=== PATIENT | female | born 1975 | race Caucasian/White ===

== ENCOUNTER → 2020-03-25 | Outpatient (CLI) | payer OTHER ==
[~2020-03-25] MED LIST: CLAR10CA3 PO; IBUP200C29 PO
== END ==
LOC: M LABSMTC 09:23
PROVIDERS: ATTEND Anesthesiology
DX: Z01.812 Encounter for preprocedural laboratory examination (principal); Z20.822 Contact with and (suspected) exposure to COVID-19

== ENCOUNTER 2020-03-30 06:17 | Day surgery (SDC) | payer OTHER ==
[~2020-03-30] VITALS: Ht 162.6 cm; Wt 76.6 kg
[~2020-03-30 06:17] MED LIST changes: +LR 1,000 ML IV ONE; +ceFAZolin SOD 2 GM in IV 1 EA IV ONE
[2020-03-30 06:43] LABS: HEMATOCRIT 39.6 % (36.0-47.0); MEAN CORPUSCULAR HEMOGLOBIN 32.1 pg (27.0-33.0); MEAN CORPUSCULAR HGB CONC 32.8 g/dl (32.0-36.5); MEAN CORPUSCULAR VOLUME 97.8 fl (80.0-96.0); PLATELET COUNT, AUTOMATED 269 10^3/uL (150-450); RED BLOOD COUNT 4.05 10^6/uL (4.00-5.40); WHITE BLOOD COUNT 5.5 10^3/uL (4.0-10.0)
[2020-03-30] MEDS ORDERED: KETOROLAC 60MG 2ML VIAL As Ordered ONE (07:20)
[2020-03-30] MEDS ORDERED: dexameTHASONE 4 MG/ML 1ML VIAL (J1100 PER 1MG) As Ordered ONE (07:20)
[2020-03-30] MEDS ORDERED: ONDANSETRON 4MG/2ML VIAL As Ordered ONE ×2 (07:20→10:22)
[2020-03-30] MEDS ORDERED: propofoL 200 MG/20 ML VIAL As Ordered ONE (07:20)
[2020-03-30] MEDS ORDERED: LIDOCAINE 2% 100MG/5ML SDV (FOR ANES.) As Ordered ONE (07:20)
[2020-03-30] MEDS ORDERED: ACETAMINOPHEN 1000MG 100ML IV BTL (OFIRMEV) (J0131 PER 10MG) As Ordered ONE (07:20)
[2020-03-30] MEDS ORDERED: ROCURONIUM BROMIDE 50 MG/5 ML VIAL As Ordered ONE ×2 (07:20→07:59)
[2020-03-30] MEDS ORDERED: SUGAMMADEX SODIUM 500 MG/5 ML VIAL (BRIDION) As Ordered ONE (07:20)
[2020-03-30] MEDS ORDERED: fentaNYL 100 MCG/2 ML INJECTION (J3010) As Ordered ONE (07:21)
[2020-03-30] MEDS ORDERED: MIDAZOLAM INJ 2MG/2ML VIAL (J2250 PER 1MG) As Ordered ONE (07:22)
[2020-03-30] MEDS ORDERED: SCOPOLAMINE 1MG TRANSDERMAL PATCH As Ordered ONE (07:29)
[2020-03-30] MEDS ORDERED: HYDROmorphone HCL 2 MG/ML 1ML VIAL (J1170) As Ordered ONE (08:07)
[2020-03-30] MEDS ORDERED: MORPHINE 1MG/ML IN 0.9% NACL 100ML IV BAG As Ordered ONE (10:23)
[2020-03-30] MEDS ORDERED: MEPERIDINE INJ 25 MG/ML VIAL (J2175) IV PRN ×2 (10:30→12:45)
[2020-03-30] MEDS ORDERED: LR 1,000 ML IV SCH ×2 (10:30→12:45)
[2020-03-30] MEDS ORDERED: NALOXONE INJ 0.4MG/1ML VIAL (J2310 PER 1MG) IV PRN (10:30)
[2020-03-30] MEDS ORDERED: IBUPROFEN 600MG TAB PO PRN (10:30)
[2020-03-30] MEDS ORDERED: METOCLOPRAMIDE INJ 10MG/2ML VIAL (J2765 PER 1) IV PRN ×2 (10:30→12:45)
[2020-03-30] MEDS ORDERED: NALBUPHINE HCL 10 MG/ML AMP (J2300) IV PRN (10:30)
[2020-03-30] MEDS ORDERED: MORPHINE 1MG/ML IN 0.9% NACL 100ML IV BAG IV PRN (10:30)
[2020-03-30] MEDS ORDERED: ONDANSETRON 4MG/2ML VIAL IV PRN ×2 (10:30→12:45)
[2020-03-30] MEDS ORDERED: diphenhydrAMINE 50MG/ML VIAL (J1200) IV PRN (10:30)
[2020-03-30] MEDS ORDERED: EPIDURAL/PCA KEYS XX PRN (10:30)
[2020-03-30] MEDS ORDERED: oxyCODONE 5MG TAB PO PRN ×2 (10:30→12:45)
[2020-03-30] MEDS: fentaNYL 100 MCG/2 ML INJECTION (J3010) IV PRN ×4 (10:48→11:13)
[2020-03-30] MEDS ORDERED: fentaNYL 100 MCG/2 ML INJECTION (J3010) IV PRN (12:45)
--- NOTE | 2020-03-30 13:37 | RO ---
OPERATIVE NOTE DATE OF OPERATION: 03/30/2020 PREOPERATIVE DIAGNOSIS/INDICATION FOR SURGERY: Pain, bleeding, and failed conservative efforts. POSTOPERATIVE DIAGNOSIS: Pain, bleeding, and failed conservative efforts. PROCEDURE: Laparoscopic-assisted vaginal hysterectomy with bilateral salpingo-oophorectomy. SURGEON: Dr. Jean-Baptiste INSTRUCTIONAL COORDINATOR: None. ANESTHESIA: General endotracheal anesthesia. BRIEF DESCRIPTION OF PROCEDURE AND FINDINGS: Ann was brought to the operating room, where sufficient general endotracheal anesthesia was induced. She was prepped, draped, and positioned in the usual sterile fashion, and the uterine manipulator was placed. There was resistance in the endometrium, consistent with her history of ablation. Upon sounding, it was apparent that we had perforated the fundus, but we were able to place the uterine manipulator in the cavity anyway, as you can see in the operative photos. This, of course, had no particular impact on the case and is certainly consistent with her previous ablation and scarring of the endometrium that would be expected with that procedure. After the manipulator was placed and Begum was placed with the ability to backfill, attention was turned to the abdomen. A transverse semilunar incision was made below the umbilicus. Sharp and blunt dissection were continued through the subcutaneous tissues to the level of the rectus fascia, which was elevated with Pedro clamps, transversely incised, and the peritoneum entered under direct visualization. Then 0 Vicryl retention sutures were placed, the Lam cannula was placed, and CO2 insufflation then begun. After adequate CO2 insufflation, the peritoneal cavity was visualized. There were normal shiny peritoneal surfaces throughout. There was no excrescence, ascites, nor exudate. There were a couple small clots in the pelvis and the evidence of the perforation, which was not bleeding, and a little bit of scar tissue, but the patient has had a previous tubal, and the scarring from that was expected. She also had evidence of an enterocele forming in the posterior cul-de-sac (photos were taken of this) and a loss, really, of development of the left uterosacral ligament and some scarring over the right uterosacral ligament. Photographs were taken of this. Did not appear to change the course of the ureters so did not appear to change the risk of ureteral injury, and they were readily identified. Based on the patient's anatomy, it was easier to clear the infundibulopelvic on the right first, so we started on that side using the operative channel in the laparoscopic camera at the umbilical port. We placed at #45 Enseal and used this to carefully dissect and transect the infundibulopelvic ligament on the right side, working our way through the superior aspect of the broad ligament to the round ligament, which was also carefully cauterized and transected using the #45 Enseal device. With that articulating dissector, we were able also to begin the dissection in the superior aspect of the broad on the right side. We the turned our attention to the left side. We had a little bit more Trendelenburg, identified the ureters, kept the bowel away from the infundibulopelvic ligament there as well, and then carefully cauterized and transected the infundibulopelvic ligament on the right and worked our way caudad through the superior aspect of the broad ligament down the round, which was also transected on that left side, and the superior aspect of the broad carefully dissected using the cold scissors on both the right and left and then the bladder flap created again using the cold scissors without cautery for that portion of the case. We then turned our attention to the vaginal aspect of the surgery with the instruments removed from the umbilicus but the port left in place should we need it. Working vaginally, the uterine manipulator was removed, and single-tooth tenacula were placed on the anterior and posterior aspects of the cervix. A curved [place] was used anteriorly and the weighted speculum used posteriorly. We then made a circumferential incision around the base of the cervix and carefully isolated the Cardinal ligaments, which were clamped with De Tee clamps, transected, and then ligated using 0 Vicryl suture, which was used throughout this portion of the case. We then carefully transected and ligated the right uterosacral and the tissues that passed for an attenuated uterosacral on the left to really less developed than typical, but all of that was held for later re-support. We continued to dissection anteriorly to meet up with the bladder dissection we had already done from above, and then we carefully clamped, transected, and ligated the uterine vasculature until we reached the level of our previous dissection, and the uterus with the attached ovaries and tubes was removed and the pedicles carefully visualized. On the patient's right side, there was a little oozing inferior to the main uterine pedicles, and this area was carefully oversewn. A sponge on a stick was used to carefully watch it and confirm good hemostasis. We also then did angle stitches of 0 Vicryl and incorporated the uterosacral tissue that we could, and we did a modified Garza's, working transversely across the posterior cul-de-sac to try to re-support that area where the enterocele had started. After doing the modified Garza's, we then moved on to closing of the cuff with a running locked stitch of 0 Vicryl with good approximation and hemostasis achieved. With the procedure ended from below and no evidence of bleeding, we went ahead and removed the Lam above and closed the deep layer with the 0 Vicryl retention sutures and then closed the skin with 3-0 Vicryl in a subcuticular stitch, and a dry sterile dressing was then placed. The procedure then ended. ESTIMATED BLOOD LOSS FOR PROCEDURE: About 200 mL. We did use the suction for accuracy there. FLUID REPLACEMENT: Crystalloid. COMPLICATIONS: None. CONDITION AND DISPOSITION: Ann tolerated the procedure well and was recovering in the recovery room in good condition.
[2020-03-30 14:00] VITALS: BP 121/85
[2020-03-30] MEDS: LR 1,000 ML IV SCH ×2 (14:21→18:08)
[2020-03-30 14:30] VITALS: BP 120/86
[2020-03-30 22:00] VITALS: BP 118/61
[2020-03-31] MEDS: LR 1,000 ML IV SCH ×2 (01:24→10:30)
[2020-03-31 02:00] VITALS: BP 118/63
[2020-03-31 06:00] VITALS: BP 118/60
[2020-03-31] MEDS ORDERED: NORCO, ANEXSIA 5/325MG TABLET (HYDROcodone/ACETAMINOPHEN) PO PRN (06:00)
== END 2020-03-31 11:15 | disposition home or self-care (01) ==
LOC: M SDC 06:17 → M MS5PR 11:50 → M SDC 03-31 11:15
PROVIDERS: ATTEND Obstetrics & Gynecology
DX: N93.9 Abnormal uterine and vaginal bleeding, unspecified (principal); R10.2 Pelvic and perineal pain; N72 Inflammatory disease of cervix uteri; Z88.0 Allergy status to penicillin; Z88.2 Allergy status to sulfonamides
CPT/HCPCS: 36415; 58571; 85027; 86850; 86900; 86901; 88307; J0131; J0690; J1100; J1170; J1885; J2250; J2405; J2765; J3010